=== PATIENT | male | born 1960 | race Caucasian/White ===

== ENCOUNTER → 2023-08-19 | Outpatient (CLI) | payer MEDICAID, SELFPAY ==
[2023-08-19 17:44] LABS: Absolute Lymphocyte Count 1.31 X10^3/uL (0.83-4.51); Absolute Neutrophil Count 5.4 X10^3/uL (2.0-7.7); Basophil# 0.02 X10^3/uL; Basophil% 0.3 % (0-1); Eosinophil# 0.04 X10^3/uL; Eosinophils% 0.6 % (0-5); Hematocrit 41.3 % (40-54); Lymphocyte # 1.31 X10^3/ul (0.83-4.51); Mean Corp Hgb Conc 33.9 g/dL (32-36); Mean Corpuscular Hgb 30.8 pg (27.0-32.0); Mean Platelet Vol. 9.9 fl (6.2-12.0); Monocyte% 6.9 % (0-10); NRBC Flagged by Analyzer 0 % (0-5); Neutrophil # 5.38 X10^3/uL (2.7-7.7); Neutrophil % 73.9 % (47-70); Platelet Count 291 K/mm3 (150-450); RBC Distribution Width CV 12.4 % (11.6-14.6); RBC Distribution Width SD 40.7 fl (35.1-43.9); Red Blood Count 4.54 M/mm3 (4.6-6.2); White Blood Count 7.3 K/mm3 (4.4-11.0)
--- OUTSIDE RECORDS SUMMARY | 2023-08-19 17:54 | XMS RPT_ITS | CCD ---
Author Name Unknown Address [address] [place] [address] Organization [facility] Care Team Providers Care Lopper Name Role Phone FAHAD MOCTEZUMA Unavailable Unavailable DENA LYNN Unavailable Unavailable FAHAD MOCTEZUMA Unavailable Unavailable IMCA Unavailable Unavailable IMCA Unavailable Unavailable FAHAD MOCTEZUMA Unavailable Unavailable IMCA Unavailable Unavailable IMCA Unavailable Unavailable IMCA Unavailable Unavailable FAHAD MOCTEZUMA Unavailable Unavailable FAHAD MOCTEZUMA Unavailable Unavailable Problems Problem Classification Problem Date Documented Da te Episodic/Chronic Heart valve disorders (3 sources) Nonrheumatic aortic (valve) insufficiency; Translations: [Nonrheumatic aortic (valve) insufficiency] Onset: 10-14-2017 Chronic Unclassified (1 source) Unknown / UNK(Unknown) Onset: 10-14-2017 Results Test Name Value Interpretation Reference Range Facil ity Encounters Encounter Date Encounter Type Care Provider Facility Start: 02-10-2018 Ambulatory IMCA Facility:[facility] Start: 10-14-2017 End: 10-14-2017 Ambulatory FAHAD MOCTEZUMA [facility] Start: 10-13-2017 Ambulatory FAHAD MOCTEZUMA Facility :[facility] Payers Date Payer Category Payer Policy ID Medicaid [id number] Summary Purpose Family History No Family History Records FoundNo Family History Records FoundNo Family History Records FoundNo Family History Records Found Advance Directives No Advanced Directives Records FoundNo Advanced Directives Records FoundNo Advanced Directives Records FoundNo Advanced Directives Records Found Additional Source Comments (unrecognized sect ion and content) No Status Records FoundNo Status Records FoundNo Status Records FoundNo Status Records Found INFORMATION SOURCE (unrecogn ized section and content) DATE CREATED AUTHOR AUTHOR'S ORGANIZ ATION 02/06/2018 [facility] DATE CREATED AUTHOR AUTHOR'S ORGANIZ ATION 02/06/2018 [facility] DATE CREATED AUTHOR AUTHOR'S ORGANOSMIN ATION 12/09/2020 [facility] FOR RECORDS PERTAINING TO PATIENTS WHO ARE OR HAVE BEEN ENROLLED IN A CHEMICAL DEPENDENCY/SUBSTANCEABUSE PROGRAM, SOME INFORMATION MAY BE OMITTED. This clinical summary was aggregated from multiple sources. Caution should be exercised in using it in the provision of clinical care. This summary normalizes information from multiple sources, and as a consequence, information in this document may materially change the coding, format and clinical context of patient data. In addition, data may be omitted in some cases. CLINICAL DECISIONS SHOULD BE BASED ON THE PRIMARY CLINICAL RECORDS. [facility] [employer] [facility]. provides no warranty or guarantee of the accuracy or completeness of information in this document.
[2023-08-19 18:05] LABS: ALB/GLOB Ratio 1.2 RATIO (0.9-2.4); AST(SGOT) 21 U/L (15-37); Alanine Aminotransfer ALT/SGPT 13 U/L (16-61); Albumin, Serum 3.9 g/dL (3.2-5.0); Alkaline Phosphatase 96 U/L (45-117); Anion Gap 7 (5-15); BUN 18 mg/dL (7-18); BUN/Creat Ratio 18.8 RATIO (10-20); Calcium,Total 8.7 mg/dL (8.5-10.1); Chloride 107 mmol/L (98-107); Cholesterol 196 mg/dL (200); Creatinine, Serum 0.96 mg/dL (0.70-1.30); EST Glomerular Filtration Rate 84 mL/min (>60); Est Glom Filt Rate - Afr Amer 102 mL/min (>60); Globulin 3.3 g/dL (2.2-4.2); Glucose 193 mg/dL (74-106); High Density Lipoprotein 54 mg/dL; Potassium 4.3 mmol/L (3.5-5.1); Protein, Total 7.2 g/dL (6.4-8.2); Sodium Level 139 mmol/L (136-145); Triglycerides 94 mg/dL; Very Low Density Lipoprotein 19 mg/dL (5-40)
[2023-08-19 18:07] LABS: Hemoglobin A1c 7.8 % (3.8-5.6)
== END | disposition home or self-care (01) ==
LOC: MFPLAB 15:13
PROVIDERS: PCP Family Medicine; Visit Provider Family Medicine
DX: F41.9 Anxiety disorder, unspecified (principal)
CPT/HCPCS: 36415; 80053; 80061; 83036; 85025

== ENCOUNTER 2023-10-07 12:14 | Day surgery (SDC) | payer SELFPAY, OTHER ==
[2023-10-07] VITALS (9 sets, daily range): BP systolic 135–176; BP diastolic 64–80; PULSE 71–81; RESP 12–18; TEMP 35.9–36.4; O2SAT 88–99; BMI 23.8
--- NOTE | 2023-10-07 12:35 | EKG12_ITS ---
Test Reason : PREOP Blood Pressure : / mmHG Vent. Rate : 080 BPM Atrial Rate : 080 BPM P-R Int : 172 ms QRS Dur : 090 ms QT Int : 380 ms P-R-T Axes : 022 021 026 degrees QTc Int : 438 ms Normal sinus rhythm Normal ECG When compared with ECG of 21-JAN-2017 05:20, No significant change was found Confirmed by RICHELLE ARELLANO, CHINO ([id number]), clinical editor AMARILIS DUFF ([id number]) on 10/09/2023 6:20:41 AM Referred By: Adilson Catherine Confirmed By:CHINO PEOPLES MD
[2023-10-07] MEDS: Lactated Ringers 1,000 ML 15 ML IV (12:56)
--- NOTE | 2023-10-07 12:59 | PCM.HP.BLA ---
History and Physical Date of Admission: 10/07/23 [facility] [address] [place] [address] OFFICE VISIT Date of Service: 10/06/23 MR#: [id number] Acct: [id number] Name: KRISTEL SHIELDS Rep #: [id number] : 1960 Provider: Dr. Adilson Catherine DO Age/Sex: 63/M Location: [facility] [place].MARIA TERESA Status: Signed Intake Vital Signs 10/01/2408:49 Height 5 ft 9 in Weight: 161 lb 6 oz BMI 23.8 Intake Visit Reasons: LEFT ARM Allergies No Known Allergies Allergy (Verified 10/01/23 09:51) [facility] Medical History (Updated 10/01/23 @ 12:[address] Adilson Catherine DO) Broken femur Fracture, ankle Family History (Updated 10/01/23 @ 09:55 by Samantha Hernandez) Mother DiabetesFather Diabetes Alzheimer's dementia Social History (Updated 10/01/23 @ 09:56 by Samantha Hernandez) household members: spouse current occupational status: employed Smoking Status: Never smoker alcohol intake: never HPI LEFT ARM Details: This documentation accurately reflects the service provided and the decisions made by me, Dr. Adilson Catherine DO 10/06/23 0801. Part of today?s visit was documented by [ ], acting as scribe. KRISTEL SHIELDS is a 63 year old M here today for follow-up on his left forearm radial shaft fracture date of injury 09/25/2023. Closed reduction last office visit 10/01/2023. Patient states that he has no pain currently. Patient has good finger range of motion with no stiffness or pain. Patients cast is clean, dry and intact. He denies any numbness or tingling. Ortho Exam General General: Yes no acute distress Neurologic: Yes alert and Yes oriented x3 Psychologic: Yes reasonable and appropriate Right Wrist/Hand Skin/Wound: Yes Swelling and Yes Ecchymosis Left Wrist/Hand Skin/Wound: Yes Swelling, Yes Ecchymosis and No erythema Sensation: Radial: I, Ulnar: I and Median: I WRIST: Gross deformity apex dorsal angulation radial shaft fracture site no open wound partial amputation of thumb, previous traumatic He is not tender at the elbow or shoulder. Head: Normocephalic Atraumatic Chest: symmetrical rise, non-labored breathing, no audible wheeze Abdomen: no guarding, non-rigid Supplemental Info 10/01/2023 postreduction x-rays forearm: Remains 50% dorsal and ulnar displacement however angulation less than 5 degrees 10/01/2023 x-ray forearm: Braham dorsal angulation fracture site junction of middle and distal third radial shaft 50% dorsal displacement, angulation had changed from previous x-rays Coding Level of Care Code Off vis,est,level 3 Diagnoses Closed displaced transverse fracture of shaft of right radius, initial encounter S52.321A Encounter type: initial encounter Fracture alignment: displaced Fracture morphology: transverse Fracture type: closed Laterality: right Assessment and Plan Assessment and Plan (1) Radial shaft fracture: Status: Acute Qualifiers: Encounter type: initial encounter Fracture alignment: displaced Fracture morphology: transverse Fracture type: closed Laterality: right Qualified Code(s): S52.321A - Displaced transverse fracture of shaft of right radius, initial encounter for closed fracture Orders: Orders Forearm 2 Views Today S52.309A - Unspecified fracture of shaft of unspecified radius, initial encounter for closed fracture Plan Explained that his fracture angled and moved. Recommended surgery for an ORIF.. Risk benefits and alternatives of surgical versus nonsurgical intervention thoroughly reviewed including risk of bleeding infection nerve artery tissue damage need for further surgery continued pain postoperative stiffness injury to the radial artery. Risks of conservative treatment continued fracture displacement loss of function of the wrist He will be in a splint for 2 weeks. He is unable to lift greater than 1/2 pound until bone heals. Patient would like to proceed with surgery. He will be put on the surgery schedule for tomorrow. He will be able to return to work in about 8 weeks. Patient signed surgery consent. Follow up for 2 week post op or sooner if pain, swelling, numbness or associated symptoms, or concerns develop. All questions answered. Patient in agreement of plan. 10/06/23 1046 <Electronically signed by Adilson Catherine DO> Date Adilson Catherine DO Cosigner Signature: Date (if applicable) I have examined the patient and the H&P has been reviewed. There are no clinical changes since date of exam.
[2023-10-07 13:25] LABS: Hemoglobin A1c 7.9 % (3.8-5.6)
[2023-10-07] MEDS: Cefazolin 2 GM in 0.9% Normal Saline (100mL Bag) 100 ML IV (13:32)
--- NOTE | 2023-10-07 13:42 | RAD_ITS ---
STUDY: X-RAY - LEFT RADIUS AND ULNA REASON FOR EXAM: Male, 63 years old. FX TECHNIQUE: 2 view(s) of the forearm. COMPARISON: Comparison is made with prior radiographs dated October 06, 2023. FINDINGS: Soft tissue swelling Intraoperative imaging provided for open reduction and internal fixation of the distal radial fracture utilizing screw and sideplate fixation device. Normal visualized ulna. RAD/Forearm 2 Views IMPRESSION: Status post ORIF of the distal radial shaft fracture with sideplate and screw fixation device. Electronically Signed: Supa Pantoja MD at 15:36 EST ,
[2023-10-07 14:03] LABS: Bedside Glucose 108 mg/dL (74-106)
[2023-10-07] MEDS: Lidocaine 1% /Epi 1:100 (20ml) 20 ML Vial (14:51)
--- NOTE | 2023-10-07 15:15 | PCM.OP.BLANK ---
Operative Report Date of Procedure: 10/07/23 Preoperative diagnosis: Displaced radial shaft fracture left forearm Postoperative diagnosis: [Same] Anesthesia: [General with axillary block} Procedure: ORIF of the radius Implants: Synthes 7 hole LCP DCP plate with corresponding 6 screws cortical Tourniquet time: 50 minutes total at 250 however it was put up and down multiple x throughout case Complications: [None] Indication for procedure: 63-year-old male patient had an injury at work sustaining a displaced radial shaft fracture of his left arm. He did have a closed reduction at the urgent care and a second closed reduction in my office however the alignment Drifting into an acceptable parameters we then discussed and agreed to proceed with open reduction internal fixation to achieve better alignment of the fracture we discussed risks benefits and alternatives of conservative versus surgical intervention. Including the risk of bleeding infection nerve artery tissue damage need for further surgery continued pain postoperative stiffness need for postoperative physical therapy and the expected postoperative course including postoperative restrictions. Procedure: The patient was met in the preoperative holding area the operative extremity was identified by both patient and physician and marked. Patient was met by anesthesia she was brought back to the operating room on a wheeled cart and transferred to the operating table in the supine position anesthesia was started. A well-padded tourniquet was placed on the upper arm of the operative extremity. He was prepped and draped in the usual sterile fashion. A Time out was called to ensure the proper patient procedure and extremity were being contemplated. The tourniquet was inflated but the arm was not exsanguinated to make it easier to visualize the radial artery. standard volar Delano approach was performed the FCR tendon was visualized in the interval between the brachioradialis and the FCR was investigated the radial artery and the corresponding venae comitantes was dissected and mobilized with vessel loop. Once this was achieved and ensure that it was protected. Hohmann retractors were used to protect the undersurface of the brachial radialis and the superficial radial nerve. the flexor digitorum superficialis was elevated off of the proximal radius and the pronator quadratus was elevated distally. The fracture site was immediately identified it was cleared of debris the distal fragment was dorsally displaced and shortened we did use a small rongeur curettes irrigation to clear clot from the fracture site with use of 2 lobster claws and traction fracture was able to be reduced a 7 hole LCP DCP plate was then applied it was fixed distally and then using the dynamic compression screw proximally the fracture was compressed placed to screws proximally and 2 screws distally and then checked our plate placement and alignment under fluoroscopy we then proceeded to drill and place an additional screw proximally and distally to give us 6 cortical purchase proximal and distal to the fracture site. Final fluoroscopic images were taken and saved to the PACS system the wound was thoroughly irrigated with a Betadine rinse that was diluted followed by sterile irrigation the wound was closed with 3-0 Vicryl subcutaneous stitches and 4-0 nylon horizontal mattress. Dressing was applied to form of Xeroform 4 x 4 ABD web roll stockinette a volar plaster splint and an Vince wrap simple sling was applied. Patient tolerated the procedure well all counts were correct the tourniquet was let down prior to closure to ensure there is no injury to the radial artery and brisk capillary refill was found after the tourniquet was let down. He was transferred the PACU in stable condition no intraoperative complications.
--- NOTE | 2023-10-07 15:27 | DCINST_ITS ---
Discharge Instructions Dressing / Incision Call your doctor if you observe: Shortness of breath and Chest pain Additional Dressing/Incision Instructions:: Strict elevation of operative extremity above heart for next 72 hours. Ice 15 minutes on 15 minutes off. Continue ice and elevation for 7 days postoperatively. Encourage finger and elbow immediate range of motion. Try to make a full fist and spread her fingers to avoid stiffness. no lifting pushing or pulling more than a coffee cup. Sling is for comfort only and may be removed . must keep splint on clean and dry. If the splint or dressing becomes wet or has any problems please let me know and come to my office sooner than follow-up appointment otherwise if no issues follow-up in the office 2 weeks. If you need more pain medication feel free to call my office. Supplement with Tylenol and ibuprofen to minimize narcotic use. Do not start ibuprofen until tomorrow. Follow Up Care Please Follow Up With: Adilson Catherine DO When: 2 weeks Test Results: Test results from this visit will be discussed in further detail at your follow- up appointment, if applicable. Discharge Plan Admission Primary Reason for Your Visit: Left radial shaft ORIF Attending Provider: Adilson Catherine Primary Care Provider: Markus Sinclair Discharge Orders/Prescriptions Prescriptions: New cephalexin [cephalexin] 500 mg capsule 1,000 mg PO Q8 Qty: 4 0RF Rx Instructions: take 2 tabs at 9:00 pm and 2 tabs after 5 am when you wake up oxycodone 5 mg tablet 5 - 10 mg PO Q4H PRN (Reason: pain) 5 Days Qty: 30 0RF acetaminophen [acetaminophen] 500 mg tablet 1,000 mg PO Q6H PRN Qty: 30 0RF Continued tramadol 50 mg tablet 50 mg PO DAILY omeprazole 40 mg capsule,delayed release(DR/EC) 40 mg PO DAILY metformin 500 MG tablet 1,000 mg PO BID Patient Comments: diabetes insulin asp prt-insulin aspart [Novolog Mix 70-30FlexPen U-100] 100 UNITS/ML insulin pen 20 units subcut DINNER Patient Comments: diabetes insulin asp prt-insulin aspart [Novolog Mix 70-30FlexPen U-100] 100 UNITS/ML insulin pen 24 units subcut DAILYCM Patient Comments: diabetes fluoxetine 20 MG capsule 20 mg PO DAILY Patient Comments: depression/anxiety Atorvastatin Calcium 10 MG tablet 10 mg PO DAILY Qty: 30 0RF Patient Comments: CHOLESTEROL Referrals / Follow Up: Markus Sinclair MD [Primary Care Provider] - Disposition Disposition (needs filled in before D/C Order can be placed): Home, Self Care
[2023-10-07] MEDS: Oxycodone/Apap 5/325 Tablet PO (16:37)
[2023-10-07] MEDS: Cefazolin 1 GM in 0.9% Normal Saline (100mL Bag) 100 ML IV (16:38)
== END 2023-10-07 17:38 | disposition home or self-care (01) ==
LOC: SDC 12:17 → AC 12:18
PROVIDERS: Anesthesiology; PCP Family Medicine; Referring Provider Orthopaedic Surgery; Visit Provider Orthopaedic Surgery
PROC: (CPT 25515; principal; 2023-10-07 13:45)
DX: S52.322A Displaced transverse fracture of shaft of left radius, initial encounter for closed fracture (principal); E11.9 Type 2 diabetes mellitus without complications; K21.9 Gastro-esophageal reflux disease without esophagitis
CPT/HCPCS: 25515; 01830; 64417; 73090; 76000; 82962; 83036; 93005; C1713; J7120; J2405

== ENCOUNTER → 2025-05-17 | Outpatient (CLI) | payer SELFPAY ==
[2025-05-17 16:14] LABS: Creatinine, Urine (random) 167.00 mg/dL (39.00-259.00); Microalbumin,Random Urine < 12.0 mg/L (<20 mg/L); Protein, Urine (Random) 15.5 mg/dL (0.0-12.0); Protein:Creat Ratio 93 mg/g CRE (0-200)
== END | disposition home or self-care (01) ==
LOC: MFPLAB 12:35
PROVIDERS: PCP Family Medicine; Referring Provider Family Medicine; Visit Provider Family Medicine
DX: E11.9 Type 2 diabetes mellitus without complications (principal)
CPT/HCPCS: 82043; 82570; 84156